=== PATIENT | female | born 1960 | race Caucasian/White ===

== ENCOUNTER → 2021-10-22 10:40 | Outpatient (CLI) | payer BC, SELFPAY ==
--- NOTE | ~2021-10-22 | MM_ITS ---
EXAMINATION: MM screening petrona BI w tavon HISTORY: Screening TECHNIQUE: Craniocaudal and mediolateral oblique 3-D tomosynthesis images were obtained and synthetic 2-D images were generated. CAD analysis was submitted and interpreted. COMPARISON: No prior mammogram is available for comparison at this institution. BREAST PARENCHYMAL COMPOSITION: There are scattered areas of fibroglandular density. FINDINGS: There is a focal asymmetry in the upper outer quadrant of the right breast anteriorly. The re is no mammographic evidence for malignancy in the left breast. IMPRESSION: 1. Focal right breast asymmetry with possible architectural distortion upper outer quadrant of the ri ght breast anteriorly. 2. Additional mammographic views and possible breast ultrasound are recommended. BI-RADS Category 0: Incomplete: Needs additional imaging evaluation. Reviewed, dictated and finalized at location A. NESS SERVICES VICE PRESIDENT IMPRESSION: 1. Focal right breast asymmetry with possible architectural distortion upper ou ter quadrant of the right breast anteriorly. 2. Additional mammographic views and possible breast ultrasound are recommended . BI-RADS Category 0: Incomplete: Needs additional imaging evaluation.
== END ==
PROVIDERS: Visit Provider Nurse Practitioner Family
DX: Z12.31 Encounter for screening mammogram for malignant neoplasm of breast (principal); R92.8 Other abnormal and inconclusive findings on diagnostic imaging of breast
CPT/HCPCS: 77063; 77067

== ENCOUNTER → 2021-11-04 07:44 | Outpatient (CLI) | payer BC, SELFPAY ==
--- NOTE | ~2021-11-04 | MMUS_ITS ---
EXAMINATION: MM diagnostic petrona RT w tavon, US breast RT limited HISTORY: Focal asymmetry reported in upper outer quadrant of right breast anteriorly on 10/22/2021 scr eening mammogram examinations TECHNIQUE: Additional 3-D tomosynthesis images of the right breast were performed and synthetic 2-D i mages were generated. CAD analysis was submitted and interpreted. High resolution upper outer and upp er inner quadrant right breast ultrasound was performed. COMPARISON: 10/31/2021 bilateral screening mammogram BREAST PARENCHYMAL COMPOSITION: There are scattered areas of fibroglandular density. FINDINGS: MAMMOGRAPHIC FINDINGS: No suspicious mass, architectural distortion, malignant calcification, skin thickening or retraction is detected. Benign-appearing punctate microcalcifications are noted. ULTRASOUND: No suspicious mass or shadowing, or cysts or other significant sonographic finding is detected in the upper inner upper outer quadrants of the right breast. IMPRESSION: 1. No mammographic evidence of malignancy 2. Routine annual mammographic screening is recommended BI-RADS Category 2: Benign finding(s). Reviewed, dictated and finalized at location A. IMPRESSION: 1. No mammographic evidence of malignancy 2. Routine annual mammographic screening is recommended BI-RADS Category 2: Benign finding(s).
== END ==
PROVIDERS: PCP Obstetrics & Gynecology; Visit Provider Nurse Practitioner Family
DX: R92.8 Other abnormal and inconclusive findings on diagnostic imaging of breast (principal)
CPT/HCPCS: 76642; 77061; 77065; G0279

== ENCOUNTER 2022-03-10 03:04 | Day surgery (SDC) | payer BC, SELFPAY ==
[2022-02-25 09:03] VITALS: BMI 31.4
--- NOTE | 2022-03-09 13:36 | SUR.PREOP ---
[id number] spoke with the patient regarding taking magnesium Citrate. Patient was able to purchase it. Confirmed with patient that she did not need to take it due to the recall of the medicine. Patient voiced understanding.
[2022-03-10 09:32] VITALS: BP 121/77; PULSE 92; RESP 20; TEMP 36.3; O2SAT 100
--- NOTE | 2022-03-10 09:39 | WPDANESEPPF ---
Anes - Initial Pre Proc Eval Procedure: Operation Date: 03/10/22 10:00 Proposed Procedures p Screening Colonoscopy - Mario Gil MD Date/Time: 03/10/22 09:39 Surgeon: Mario Gil MD Pre Op Diagnosis: neoplasm screening Patient Data Age: 61 Gender: F Height: 1.57 m Weight: 74.8 kg Last Vital Signs Temp 36.3 C L 03/10/22 09:32 Pulse 92 03/10/22 09:32 Resp 20 03/10/22 09:32 BP 121/77 03/10/22 09:32 Pulse Ox 100 03/10/22 09:32 O2 Del Method Room Air 03/10/22 09:32 Allergies Allergy/AdvReac Type Severity Reaction Status Date / Time No Known Allergies Allergy Verified 03/10/22 09:31 Home Medications Medication Instructions Recorded Confirmed Type Saccharomyces boulardii 250 mg 250 mg PO BID 06/15/21 03/10/22 History capsule (Daily Probiotic (S. boulardii)) ascorbate calcium (vitamin C) 500 500 mg PO DAILY 06/15/21 03/10/22 History mg tablet cholecalciferol (vitamin D3) 50 50 mcg PO DAILY 06/15/21 03/10/22 History mcg (2,000 unit) capsule hydrochlorothiazide 25 mg tablet 25 mg PO DAILY #90 tabs 06/15/21 03/10/22 Rx losartan 100 mg tablet 100 mg PO DAILY #90 tabs 06/15/21 03/10/22 Rx metformin 500 mg tablet 500 mg PO DAILY #90 tabs 06/15/21 03/10/22 Rx multivitamin (Daily Multi-Vitamin 1 tablet PO DAILY 06/15/21 03/10/22 History tablet) oxybutynin chloride 5 mg 5 mg PO DAILY #90 tabs 06/15/21 03/10/22 Rx tablet,extended release 24 hr simvastatin 10 mg tablet 10 mg PO DAILY #90 tabs 06/15/21 03/10/22 Rx zinc sulfate 25 mg zinc (110 mg) 25 mg PO DAILY 06/15/21 03/10/22 History tablet (Orazinc) estradiol 1 mg tablet 1 mg PO DAILY #90 tabs 07/12/21 03/10/22 Rx magnesium 250 mg tablet 250 mg PO DAILY 07/27/21 03/10/22 History metoprolol succinate 25 mg 25 mg PO DAILY #90 tabs 07/27/21 03/10/22 Rx tablet,extended release 24 hr bupropion HCl 150 mg tablet,12 hr 150 mg PO DAILY 10/20/21 03/10/22 History sustained-release (Wellbutrin SR) estradiol 2 mg tablet 2 mg PO DAILY #90 tabs 10/20/21 03/10/22 Rx testosterone 12.5 mg/1.25 gram per See Rx Instructions transdermal 02/03/22 03/10/22 Rx actuation (1%) transdermal gel pump DAILY #150 grams codeine 10 mg-guaifenesin 100 mg/5 5 ml PO TID PRN cough #120 mL 02/24/22 03/10/22 Rx mL oral liquid nirmatrelvir 300 mg (150 mg x See Rx Instructions PO .COMPLEX 02/24/22 03/10/22 Rx 2)-ritonavir 100 mg tablet (EUA) #30 tabs (Paxlovid 300 mg () peg 3350-electrolytes 236 240 ml PO Q10M #4,000 mL 02/24/22 03/10/22 Rx gram-22.74 gram-6.74 gram-5.86 gram solution (Golytely) azithromycin 250 mg tablet See Rx Instructions PO .COMPLEX #6 03/07/22 03/10/22 Rx (Zithromax Z-Prabhakar) tabs Patient hx anesthesia problems: none Family hx anesthesia problems: none Results Review: All pre-operative results and documents have been reviewed as part of the pre-operative evaluation. [facility] Past Medical History Medical History Anxiety Depression Essential hypertension HTN (hypertension) Hyperlipemia Migraine Missed x1 OAB (overactive bladder) Pre-diabetes Vaginal delivery x2 Surgical History Surgical History H/O: hysterectomy (~2006) 2009 History of back surgery (~2011) 2008 History of bilateral salpingo-oophorectomy 2009 History of bilateral tubal ligation History of cholecystectomy History of dilation and curettage History of endometrial ablation History of third molar tooth extraction History of tonsillectomy (~1970) Family History Family History Father Hypertension Heart disease Depression Anxiety Mother Cancer Stomach,Liver,Brain,Lungs Depression Anxiety Thyroid condition Sibling Anxiety Depression Grandparent Heart disease Grandparent Heart disease Social History Social History (Re
[2022-03-10 09:42] LABS: Glucose Point of Care 102 mg/dl (65-105)
[2022-03-10] MEDS: LACTATED RINGERS 1,000 ML 150 ML IV CONT (09:44)
--- NOTE | 2022-03-10 10:18 | WPDGICN ---
Assessment and Plan Assessment and plan (1) Encounter for screening colonoscopy: Code(s): Z12.11 - Encounter for screening for malignant neoplasm of colon Status: Acute Assessment and Plan: Patient presents for screening colonoscopy. Appears to be at average risk for colon polyp. Further recommendations will be given after endoscopy. GI Consult Note Consult date/time: 03/10/22 10:18 Reason for consult: Neoplasia screening. HPI: Ira Heredia is a 61 year old female Presents for screening colonoscopy. Patient's current weight appetite and bowel movements are normal. She denies abdominal pain. Patient has had no bleeding. Family history is noncontributory. Patient reports a colonoscopy 10 years ago that was unremarkable performed for unclear reasons. Review of Systems Review of Systems: Review of systems noncontributory. [facility] Past Medical History Medical History Anxiety Depression Essential hypertension HTN (hypertension) Hyperlipemia Migraine Missed x1 OAB (overactive bladder) Pre-diabetes Vaginal delivery x2 Surgical History Surgical History H/O: hysterectomy (~2006) 2009 History of back surgery (~2011) 2008 History of bilateral salpingo-oophorectomy 2009 History of bilateral tubal ligation History of cholecystectomy History of dilation and curettage History of endometrial ablation History of third molar tooth extraction History of tonsillectomy (~1970) Family History Family History Father Hypertension Heart disease Depression Anxiety Mother Cancer Stomach,Liver,Brain,Lungs Depression Anxiety Thyroid condition Sibling Anxiety Depression Grandparent Heart disease Grandparent Heart disease Social History Social History Smoking status: Never smoker Alcohol intake: current Drinks per week: 2 Alcohol use details: Daily Substance use: never Substance use type: does not use Living arrangements: with family Gender identity (if verbalized by the patient): Female Spiritual care concerns: No Agree to blood products: Yes Meds Home Medications and Allergies Home Medications Medication Instructions Recorded Confirmed Type Saccharomyces boulardii 250 mg 250 mg PO BID 06/15/21 03/10/22 History capsule (Daily Probiotic (S. boulardii)) ascorbate calcium (vitamin C) 500 500 mg PO DAILY 06/15/21 03/10/22 History mg tablet cholecalciferol (vitamin D3) 50 50 mcg PO DAILY 06/15/21 03/10/22 History mcg (2,000 unit) capsule hydrochlorothiazide 25 mg tablet 25 mg PO DAILY #90 tabs 06/15/21 03/10/22 Rx losartan 100 mg tablet 100 mg PO DAILY #90 tabs 06/15/21 03/10/22 Rx metformin 500 mg tablet 500 mg PO DAILY #90 tabs 06/15/21 03/10/22 Rx multivitamin (Daily Multi-Vitamin 1 tablet PO DAILY 06/15/21 03/10/22 History tablet) oxybutynin chloride 5 mg 5 mg PO DAILY #90 tabs 06/15/21 03/10/22 Rx tablet,extended release 24 hr simvastatin 10 mg tablet 10 mg PO DAILY #90 tabs 06/15/21 03/10/22 Rx zinc sulfate 25 mg zinc (110 mg) 25 mg PO DAILY 06/15/21 03/10/22 History tablet (Orazinc) estradiol 1 mg tablet 1 mg PO DAILY #90 tabs 07/12/21 03/10/22 Rx magnesium 250 mg tablet 250 mg PO DAILY 07/27/21 03/10/22 History metoprolol succinate 25 mg 25 mg PO DAILY #90 tabs 07/27/21 03/10/22 Rx tablet,extended release 24 hr bupropion HCl 150 mg tablet,12 hr 150 mg PO DAILY 10/20/21 03/10/22 History sustained-release (Wellbutrin SR) estradiol 2 mg tablet 2 mg PO DAILY #90 tabs 10/20/21 03/10/22 Rx testosterone 12.5 mg/1.25 gram per See Rx Instructions transdermal 02/03/22 03/10/22 Rx actuation (1%) transdermal gel pump DAILY #150 grams codeine 10 mg-guaifenesin 100 mg/5 5 ml PO TID PRN cou
[2022-03-10 10:58] VITALS: BP 131/77; PULSE 83; RESP 22; O2SAT 96
[2022-03-10 11:08] VITALS: BP 136/80; PULSE 77; RESP 18; O2SAT 98
== END 2022-03-10 11:24 | disposition home or self-care (01) ==
PROVIDERS: PCP Nurse Practitioner Family; Visit Provider Internal Medicine Gastroenterology
PROC: 0DJD8ZZ Inspection of Lower Intestinal Tract, Via Natural or Artificial Opening Endoscopic (ICD-10-PCS; CPT 45378; principal; 2022-03-10 10:00)
DX: Z12.11 Encounter for screening for malignant neoplasm of colon (principal); K57.30 Diverticulosis of large intestine without perforation or abscess without bleeding; I10 Essential (primary) hypertension; E78.5 Hyperlipidemia, unspecified; R73.03 Prediabetes; F41.9 Anxiety disorder, unspecified; F32.A Depression, unspecified; N32.81 Overactive bladder; Z79.84 Long term (current) use of oral hypoglycemic drugs; Z79.891 Long term (current) use of opiate analgesic; E66.9 Obesity, unspecified; Z68.30 Body mass index [BMI] 30.0-30.9, adult
CPT/HCPCS: 45378; 82948; J2704; J7120

== ENCOUNTER 2022-06-01 18:42 | Outpatient (NON) | payer BC, SELFPAY | END 2022-06-01 18:43 | disposition home or self-care (01) | PROVIDERS: PCP Nurse Practitioner Family; Visit Provider Nurse Practitioner | DX: J02.9 Acute pharyngitis, unspecified (principal) | CPT/HCPCS: 87070 ==

== ENCOUNTER 2023-03-27 13:15 | Outpatient (CLI) | payer BC, SELFPAY ==
--- NOTE | ~2023-03-27 | US_ITS ---
EXAMINATION: US soft tissue chest INDICATION: Localized swelling mass and lump of the left chest TECHNIQUE: Limited ultrasound is performed in the area of clinical concern. COMPARISON: None available FINDINGS: No sonographic correlate is identified for the reported painful palpable area of the left f lank. Normal subcutaneous tissues are seen. IMPRESSION: 1. No specific sonographic correlate is identified for the reported painful and palpable abnormality of the left flank. Further evaluation at this time should be based on clinical assessment. Reviewed, dictated and finalized at location B.
== END 2023-03-27 13:16 ==
PROVIDERS: PCP Nurse Practitioner Family; Referring Provider Family Medicine; Visit Provider Nurse Practitioner Family
DX: R22.2 Localized swelling, mass and lump, trunk (principal)
CPT/HCPCS: 76604

== ENCOUNTER → 2023-07-28 14:41 | Outpatient (CLI) | payer BC, SELFPAY ==
--- NOTE | ~2023-07-28 | MM_ITS ---
EXAMINATION: MM screening petrona BI w tavon HISTORY: Screening TECHNIQUE: Craniocaudal and mediolateral oblique 3-D tomosynthesis images were obtained and synthetic 2-D images were generated. CAD analysis was submitted and interpreted. COMPARISON: Comparison to multiple prior studies sequentially, with oldest reviewed study dated 04/05. BREAST PARENCHYMAL COMPOSITION: There are scattered areas of fibroglandular density. FINDINGS: The left breast is stable without evidence for malignancy. There is increasing architectura l distortion in the periareolar location of the right breast. IMPRESSION: 1. Increasing architectural distortion periareolar location of the right breast. 2. Additional mammographic views and possible breast ultrasound are recommended. BI-RADS Category 0: Incomplete: Needs additional imaging evaluation. Reviewed, dictated and finalized at location A. L DIE ENGRAVER IMPRESSION: 1. Increasing architectural distortion periareolar location of the right breast . 2. Additional mammographic views and possible breast ultrasound are recommended . BI-RADS Category 0: Incomplete: Needs additional imaging evaluation.
== END ==
PROVIDERS: PCP Nurse Practitioner Family; Visit Provider Nurse Practitioner Family
DX: Z12.31 Encounter for screening mammogram for malignant neoplasm of breast (principal); R92.8 Other abnormal and inconclusive findings on diagnostic imaging of breast
CPT/HCPCS: 77063; 77067

== ENCOUNTER 2023-08-24 08:32 | Outpatient (CLI) | payer BC, SELFPAY ==
--- NOTE | ~2023-08-24 | MM_ITS ---
EXAMINATION: MM diagnostic petrona RT w tavon HISTORY: Possible right breast architectural distortion on screening mammogram TECHNIQUE: Additional 3-D tomosynthesis images of the right breast were performed and synthetic 2-D i mages were generated. CAD analysis was submitted and interpreted. COMPARISON: 07/28/2023, 11/04/2021, 10/22/2021, 05/26/2017, 04/05/2011, 02/26/2010 FINDINGS: There is a return to baseline fibroglandular appearance with spot compression of the right breast in the area questioned on screening mammogram. No suspicious mass, calcification, or [employer] architect ural distortion are identified. IMPRESSION: 1. No mammographic evidence of malignancy. 2. Recommend routine screening mammography in one year. BI-RADS Category 1: Negative Reviewed, dictated and finalized at location A. ITY CONTROL INDUSTRIAL ENGINEER
== END 2023-08-24 08:33 ==
LOC: MICIMG 08:34
PROVIDERS: PCP Nurse Practitioner Family; Visit Provider Nurse Practitioner Family
DX: R92.8 Other abnormal and inconclusive findings on diagnostic imaging of breast (principal)
CPT/HCPCS: 77061; 77065; G0279

== ENCOUNTER 2024-01-09 15:55 | Outpatient (CLI) | payer BC, SELFPAY ==
--- NOTE | ~2024-01-09 | XR_ITS ---
EXAMINATION: XR lumbar spine 2-3V DATE: 01/09/2024 16:21 INDICATION: Chronic low back pain. TECHNIQUE: 3 views of lumbar spine were obtained. COMPARISON: None. FINDINGS: There is 4 degrees dextrocurvature lumbar spine. Vertebral body heights are normal. There i s mildly decreased disc height at L1-L2 and L2-L3 and severely decreased disc height at L5-S1. There is multilevel severe facet joint osteophytes. Surgical clips in the right upper quadrant are likely f rom cholecystectomy. There is a tubal ligation clip in the pelvis. IMPRESSION: 1. Severe lumbar spondylosis. Reviewed, dictated and finalized at location A.
== END 2024-01-09 15:56 ==
LOC: GOSHIMG 15:55
PROVIDERS: PCP Family Medicine; Visit Provider Student in an Organized Health Care Education/Training Program
DX: M43.06 Spondylolysis, lumbar region (principal); G89.29 Other chronic pain
CPT/HCPCS: 72100

== ENCOUNTER 2024-01-24 08:39 | Outpatient (CLI) | payer BC, SELFPAY ==
--- NOTE | ~2024-01-24 | MR_ITS ---
MRI of the lumbar spine Clinical History: Back pain Technique: Axial T2-weighted images, and sagittal T1-weighted, T2-weighted, and and T2 fat-sat images were acquired. Findings: No fracture seen. There is minimal grade I retrolisthesis of L2 over L3, with type I Modic changes about this disc space. No other bone marrow signal abnormality seen. At L1-L2, there is minimal disc bulge with mild to moderate facet arthropathy. No central canal steno sis or neural foraminal narrowing. At L2-L3, the disc bulge and moderate to advanced facet arthropathy, with moderate to advanced spinal canal stenosis/thecal sac compression. There is mild bilateral neural foraminal narrowing. At L3-L4, there is minimal disc bulge with severe facet arthropathy. No mateus central canal stenosis despite mild posterior prominent epidural fat. Neural foramina are minimally narrowed. At L4-L5, there is minimal disc bulge and severe facet arthropathy. No central canal stenosis. There is moderate to advanced right neural foraminal narrowing. At L5-S1, there is severe degenerative disc narrowing. There is mild disc osteophyte complex at the l eft paracentral to left foraminal region. There is severe facet arthropathy. There is moderate to adv anced left neural foraminal narrowing. Right neural foramen preserved. Paravertebral soft tissues are unremarkable. Impression: Moderate to advanced degenerative spondylosis, as above. Reviewed, dictated and finalized at [facility]. Impression: Moderate to advanced degenerative spondylosis, as above.
== END 2024-01-24 08:40 ==
LOC: GOSHIMG 08:40
PROVIDERS: PCP Family Medicine; Visit Provider Student in an Organized Health Care Education/Training Program
DX: M47.896 Other spondylosis, lumbar region (principal)
CPT/HCPCS: 72148

== ENCOUNTER 2024-08-26 11:02 | Outpatient (CLI) | payer BC, SELFPAY ==
--- NOTE | ~2024-08-26 | MM_ITS ---
EXAMINATION: MM screening petrona BI w tavon HISTORY: Screening mammogram TECHNIQUE: Craniocaudal and mediolateral oblique 3-D tomosynthesis images were obtained and synthetic 2-D images were generated. CAD analysis was submitted and interpreted. COMPARISON: 08/24/2023, 07/28/2023 BREAST PARENCHYMAL COMPOSITION:Not Dense. There are scattered areas of fibroglandular density. FINDINGS: No suspicious mass, calcification, or architectural distortion are identified in either michelle ast to suggest malignancy. There has been no suspicious interval change. IMPRESSION: No mammographic evidence of malignancy. Recommend routine screening mammography in one year. BI-RADS Category 1: Negative Reviewed, dictated and finalized at location . PING MACHINE OPERATOR
== END 2024-08-26 11:03 | disposition home or self-care (01) ==
LOC: MICIMG 11:03
PROVIDERS: PCP Family Medicine; Visit Provider Family Medicine
DX: Z12.31 Encounter for screening mammogram for malignant neoplasm of breast (principal)
CPT/HCPCS: 77063; 77067

== ENCOUNTER 2025-03-17 10:05 | Outpatient (CLI) | payer BC, SELFPAY ==
--- NOTE | ~2025-03-17 | DEXA_ITS ---
Bone Density Report Name: MELANIA VILLEDA Age: 64 Sex: Female Ethnicity: White Date of : 1960 Indication: postmenopausal; screening for osteoporosis; hysterectomy; Referring Provider: CADEN WHITTEN Study: Bone densitometry was performed. Exam Date: March 17, 2025 Accession number: [id number] Bone Density: Region BMD T-score Z-score Classification AP Spine(L1-L4) 1.086 0.4 1.9 Normal Femoral Neck (Left) 0.706 -1.3 0.1 Osteopenia Total Hip (Left) 0.905 -0.3 0.8 Normal Femoral Neck (Right) 0.705 -1.3 0.1 Osteopenia Total Hip (Right) 0.871 -0.6 0.5 Normal Total Hip Mean 0.888 -0.5 0.7 Normal World Health Organization criteria for BMD impression classify patients as: Normal (T-score at or above -1.0), Osteopenia (T-score between -1.0 and -2.5), or Osteoporosis (T-score at or below -2.5). 10-year Fracture Risk(1): Major Osteoporotic Fracture 7.7% Hip Fracture 0.6% Reported Risk Factors: [place] (), Neck BMD=0.706, BMI=31.2 (1) FRAX(R) Version 3.08. Fracture probability calculated for an untreated patient. Fracture probability may be lower if the patient has received treatment. Clinical Information Provided by Patient: Has used the following medications: Vitamin D, Calcium Has the following medical conditions: Hysterectomy Patient maximum height was 63 Menopause Age: 52 No regular weight bearing exercise Drinks caffeinated beverages Onset of menses at age 13 Number of children 2 Impression: The patient has low bone mass, based on the Left Femoral Neck T-score. The patient has an estimated ten-year risk of hip fracture of 0.6% and an estimated ten-year risk of major fracture of 7.7%, based on the WHO FRAX algorithm. Discussion: BONE DENSITY IS LOW AT ONE OR MORE SKELETAL SITES. This patient's lowest T-score is low at one or more skeletal sites. It meets the World Health Organization's (WHO) criteria for ?low bone mass? (T-score between -1.0 and -2.5). The patient's 10-year risk of fracture as calculated by FRAX is less than the threshold where pharmacological therapy is recommended by the National Osteoporosis Foundation (NOF). However, all treatment decisions require clinical judgment and consideration of individual patient factors, including patient preferences, comorbidities, previous drug use, risk factors not captured in the FRAX model (e.g., frailty, falls, vitamin D deficiency, increased bone turnover, interval significant decline in bone density) and possible under or overestimation of fracture risk by FRAX. The patient should follow a healthful lifestyle (good nutrition with adequate calcium and vitamin D, and appropriate weight-bearing exercise). Follow-Up: Consider repeating this study in 2 to 3 years to reassess this patient's status, or sooner if there is some new clinical indication. Reported by: FRANCISCA on 03/17/2025 11:19:00 AM. Reviewed, dictated and finalized at location A.
== END 2025-03-17 10:06 | disposition home or self-care (01) ==
LOC: MICIMG 10:07
PROVIDERS: PCP Obstetrics & Gynecology; Visit Provider Obstetrics & Gynecology
DX: M85.89 Other specified disorders of bone density and structure, multiple sites (principal); Z91.89 Other specified personal risk factors, not elsewhere classified; Z13.820 Encounter for screening for osteoporosis
CPT/HCPCS: 77080

== ENCOUNTER 2025-05-05 08:24 | Outpatient (CLI) | payer BC, SELFPAY ==
--- OUTSIDE RECORDS SUMMARY | 2015-12-25 05:20 | XMS_ITS | Continuity of Care Document ---
Author Organization [facility] Address [address] [place] [address] Phone Care Team Providers Care Mail Distribution Clerk Name Role Phone Solo Shah MD, Humberto Hallman Unavai lable Allergies, Adverse Reactions, Alerts Substance Reaction Status Criticality No Known Allergies Active No Inform ation Medications Medication Instructions Dosage Effective Dates (start - stop) Status Comments No Drug Therapy Prescribed Procedures Procedure Date OFFICE/OUTPATIENT VISIT NEW Advance Directives Directive Yes / No Effective Date File Name No Information Encounters Encounter Description Practice Location Reason(s) For Visit Diagnoses Date Provider Providers Copied on Encounter OFFICE/OUTPAT IENT VISIT NEW [facility] , [address], [place], [address], tel:[phone] [facility] Neck pain Solo rogers [address], [place], [place], [id number]. tel:[phone] Family History Family Member Type Diagnosis Age At Onset Brother Problem (finding) hypertension Father Problem (finding) Cardiovascular disease Brother Problem (finding) Maternal history of gabrielle betes mellitus Mother Problem (finding) Father Problem (finding) Maternal history of gabrielle betes mellitus Mother Problem (finding) Cancer, unknown (Cause Of ) Mother Problem (finding) hypertension Payers Payer name Insurance type Covered green party ID Authoriza titim(s) [facility] Choice/Choice Plus E2 [id number] Social History Type Description Quantity Date Captured Comments Alcohol Use Details Caffeine Use Details Unknown Tobacco Use Status Never smoked tobacco 2015 Smoking Status Never smoker Non-Smoking Tobacco Use Details : No Details Available : No Details Available Sex Female Vital Signs Date / Time: Height Weight BMI Pulse Rate Blood Pressure Temperature Respiratory Rate Body Surface Area Head Circumference Head Circ. Percentile Wt./Juan Carlos. Percentile BMI percentile Pulse Ox Inhaled Ox 10:47 AM 63.00 in 74.843 kg (165.00 lbs) 29.2 3 kg/m eter (2) Chief Complaint And Reason For Visit No Information Reason For Referral Reason For Referral No Information History Of Present Illness Encounter Date Complaint History Of Prese nt Illness No Information Functional Status Date Functional Assessmen t No Information Medications Administered Medication Instructions Dosage Effective Dates (start - stop) Status Comments No Drug Therapy Prescribed Instructions Date Instruction Additional Infor mation No Information Assessments Type Assessment Date assessment Neck pain Patient Care Teams Name Effective Dates (start - stop) Status Members No Information
--- OUTSIDE RECORDS SUMMARY | 2025-05-05 08:59 | XMS_ITS | Encounter Summary ---
Author Organization [facility] Address 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 Gender Identity Not on file Sexual Orientation Not on file documented as of this encounter Plan of Treatment Not on file documented as of this encounter Procedures Procedure Name Priority Date/Time Associated Diagnosis Comments POC , URINE Routine 11/20/2006 8:00 AM CDT HEMOGLOBIN AND HEMATOCRIT Routine 11/16/2006 9:12 AM CDT documented in this encounter Results * POC , URINE (11/20/2006 8:00 AM CDT) , URINE POC Negative Negative INTERFACE SYSTEM 11/20/2006 8:00 AM CDT us José Lester MD POINT OF CARE TESTING Edited INTERFACE SYSTEM Refer to clinic/hospital department * HEMOGLOBIN AND HEMATOCRIT (11/16/2006 9:12 AM CDT) HEMOGLOBIN 13.9 11.8 - 14.8 g/dL INTERFACE SYSTEM HEMATOCRIT 41.9 35.5 - 44.0 % INTERFACE SYSTEM 11/16/2006 9:12 AM CDT us José Lester MD HEMATOLOGY ORDERABLES Edited INTERFACE SYSTEM Refer to clinic/hospital department documented in this encounter Visit Diagnoses Diagnosis Displacement of lumbar intervertebral disc without myelopathy- Primary documented in this encounter Care Teams Boiler Maker Relationship Specialty Start Date End Date Chinmay Hilton MD [address] [place] [address] PCP - General 11/10/06 documented as of this encounter
--- OUTSIDE RECORDS SUMMARY | 2025-05-05 08:59 | XMS_ITS | Encounter Summary ---
Author Organization [facility] Address 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 Gender Identity Not on file Sexual Orientation Not on file documented as of this encounter Plan of Treatment Not on file documented as of this encounter Procedures Procedure Name Priority Date/Time Associated Diagnosis Comments MAMMO SCREEN BILAT W OR WO CAD Routine 12/02/2008 10:40 AM CDT documented in this encounter Results * MAMMO DIGITAL SCREEN BILAT (12/02/2008 10:40 AM CDT) Anatomical Region Laterality Modality Breast Bilateral Other 12/02/2008 10:4 0 AM CDT Narrative 12/03/2008 8:51 AM CDT [address] [address] Admit Date: 12/02/2008 KRACLAUDIA MCELROYChris Vance Sex: F Admit Prov: HETAL FLANAGAN Date: 1960 Primary Care Prov: CHINMAY HILTON CMRN: [id number] Room: LUIS MIGUEL SSN: [id number] IMAGING SERVICES Ordering Prov: HETAL FLANAGAN Accession Number: [id number] Interpretation BILATERAL SCREENING DIGITAL MAMMOGRAMS WITH COMPUTER ASSISTED DIAGNOSIS, 12/02/2008 REASON FOR EXAMINATION: Routine screening study. FINDINGS: The parenchyma is moderately dense bilaterally. There is no mass, malignant calcification, lymphadenopathy or other sign of malignancy. The images were reviewed using the CAD system. IMPRESSION: No mammographic evidence of malignancy. BI-RADS Category: 1, negative. Assessment BIRADS: 1-Negative Recommendation: Normal interval follow-up Dictated by: JHON PERERA Electronically signed by: JHON PERERA 12/03/2008 08:50 Transcribed: 12/03/2008 07:41 DKT Procedure Note Jhon Perera MD - 12/03/[id number] [place], [place] [address] Admit Date: 12/02/2008 DILLONIRA MCELROY Sex: F Admit Prov: HETAL FLANAGAN Date: 1960 Primary Care Prov: CHINMAY HILTON CMRN: [id number] Room: LUIS MIGUEL N: [id number] IMAGING SERVICES Ordering Prov: HETAL FLANAGAN Interpretation BILATERAL SCREENING DIGITAL MAMMOGRAMS WITH COMPUTER ASSISTEDDIAGNOSIS, 12/02/2008 REASON FOR EXAMINATION: Routine screening study. FINDINGS: The parenchyma is moderately dense bilaterally. There is no mass,malignant calcification, lymphadenopathy or other sign of malignancy. Theimages were reviewed using the CAD system. IMPRESSION: No mammographic evidence of malignancy. BI-RADS Category: 1, negative. Assessment BIRADS: 1-Negative Recommendation: Normal interval follow-up Dictated by: JHON PERERA Electronically signed by: JHON PERERA 12/03/2008 08:50 Transcribed: 12/03/2008 07:41 DKT us Hetal Flanagan MD MAMMO ORDERABLES Final Resul t documented in this encounter Visit Diagnoses Diagnosis Other screening mammogram documented in this encounter Care Teams Position Description Manager Relationship Specialty Start Date End Date Chinmay Hilton MD [address] [place] [address] PCP - General 11/10/06 documented as of this encounter
--- OUTSIDE RECORDS SUMMARY | 2025-05-05 08:59 | XMS_ITS | Encounter Summary ---
Author Organization [facility] Address 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, [place] [address] Patient: IRA VILLEDA : 1960 Procedure Date: 02/06/2009 Accession Date: 02/06/2009 Case No: [id number] Ordering Dr: Violeta GLASER Case types AW, BW, FW, NW and SH are performed by [facility] [place], [place], [place] SURGICAL PATHOLOGY & NON-GYNECOLOGIC CYTOPATHOLOGY REPORT DIAGNOSIS UTERUS, CERVIX, VAGINAL HYSTERECTOMY: - NO SIGNIFICANT HISTOPATHOLOGIC ABNORMALITIES. UTERUS, ENDOMETRIUM, VAGINAL HYSTERECTOMY: - EARLY SECRETORY PATTERN WITH NO SIGNIFICANT HISTOPATHOLOGIC ABNORMALITIES. UTERUS, MYOMETRIUM, VAGINAL HYSTERECTOMY: - LEIOMYOMA. - ADENOMYOSIS. OVARIES AND FALLOPIAN TUBES, RIGHT AND LEFT, EXCISION: - NO SIGNIFICANT HISTOPATHOLOGIC ABNORMALITIES. Specimen Description: Uterus, cervix, bilateral tubes and ovaries. Operative Procedure: Laparoscopic assisted vaginal hysterectomy, bilateral salpingo- oophorectomy. Patient Information/Histor y/Diagnosis: Menorrhagia and dysmenorrhea. Gross: Received in one container labeled Ira Villeda., uterus, cervix, bilateral tubes and ovaries is a 127-g, 8.7 x 5.5 x 4.7-cm uterus. The bilateral adnexa are attached. The serosa is pink-greenfield and glistening. The 3.3 x 2.7-cm ectocervix is pink-greenfield, glistening, and focally disrupted. The 0.6-cm slit os leads into a 2.5-cm trabeculated endocervical canal. The transformation zone is distinct. The 3.3 x 0.7-cm endometrial cavity is stenotic. The cavity is lined by 0.1-cm thick, diffusely hemorrhagic endometrium. The 2.3-cm thick myometrium is remarkable for two firm, well- circumscribed nodules, 0.4 cm and 1.5 cm. The nodules have a white, whorled cut surface with no areas of hemorrhage or necrosis. The 1.5 x 1.0 x 1.0-cm right ovary has an attached 5.5-cm long x 0.5-cm in diameter fimbriated fallopian tube. The surface of the ovary is pink-greenfield, smooth and intact. Sectioning demonstrates a 0.4-cm cyst filled with clear thin fluid. The inner lining of the cyst is smooth and uniform. The fallopian tube is discontinuous. The surface is purple-greenfield and glistening. The lumen of the proximal end of the tube is dilated to 0.2 cm in diameter. The left ovary measures 2.7 x 1.8 x 0.9 cm and has an attached 4.5-cm long x 0.5-cm in diameter discontinuous fimbriated fallopian tube. The surface of the fallopian tube is pink-greenfield, wrinkled, and focally disrupted. Sectioning demonstrates a 0.5-cm cyst filled with clear thin fluid. There are also multiple hemorrhagic corpora lutea. The surface of the fallopian tube is purple-greenfield and glistening. The lumen of the proximal end of the tube is dilated to 1.0 cm in diameter. The remainder of the tube has a pinpoint lumen. Car Starter sections are submitted as follows: A1-anterior cervix; A2-posterior cervix; A3-anterior endomyometrium; A4-posterior endomyometrium; A5-larger intramural nodule; A6-first tube and ovary; A7- second tube and ovary. [facility] 02.06.2009 02:21 pm Microscopic: The slides are labeled [id number] and Ira Villeda. Sections of the cervix show Nabothian cysts. The endometrium demonstrates an early secretory pattern with no significant histopathologic abnormalities. A leiomyoma and foci of adenomyosis are present in the myometrium. There are no significant histopathologic abnormalities in the ovaries or fallopian tubes. A corpus luteum is present in the left ovary. [facility] 02.09.2009 01:45 pm Staging Form: No. ELECTRONIC SIGNATURE FOR HARRY RIGGS M.D.- 02/09/09 03:22 pm INTERFACE SYSTEM 02/06/2009 11:2 9 AM CDT us José Glaser MD PATHOLOGY/CYTOLOGY ORDERAB LES Final Result INTERFACE SYSTEM Refer to clinic/hospital department * POC , URINE (02/06/2009 6:05 AM CDT) , URINE POC Negative Negative [facility] 02/06/2009 6:05 AM CDT 02/06/2009 6:05 AM CDT José Glaser MD POINT OF CARE TESTING Puja l Result Performing Organization Address [facility] Phone Number INTERFACE SYSTEM Refer to clinic/hospital department [facility] CLIA# [id number] [address] [place] [address] * TYPE AND SCREEN (02/02/2009 4:38 PM CDT) SPECIMEN LIFE 3 days from OR date [facility] HISTORY CHECK History Checked [facility] ANTIBODY SCREEN Negative [facility] ABO/RH TYPE A Positive [facility] 02/02/2009 4:38 PM CDT José Glaser MD BLOOD BANK ORDERABLES Edit ed Performing Organization Address [facility] Phone Number INTERFACE SYSTEM Refer to clinic/hospital department [facility] CLIA# [id number] [address] [place] [address] * HEMOGLOBIN AND HEMATOCRIT (02/02/2009 4:15 PM CDT) HEMOGLOBIN 13.3 11.8 - 14.8 g/dL [facility] HEMATOCRIT 39.7 35.5 - 44.0 % [facility] 02/02/2009 4:15 PM CDT 02/02/2009 4:58 PM CDT José Glaser MD HEMATOLOGY ORDERABLES Puja l Result Performing Organization Address [facility] Phone Number INTERFACE SYSTEM Refer to clinic/hospital department [facility] CLIA# [id number] [address] [place] [address] documented in this encounter Visit Diagnoses Diagnosis Unspecified symptom associated with female genital organs documented in this encounter Care Teams Assistive Technology Trainer Relationship Specialty Start Date End Date Chinmay Hilton MD [address] [place] [id number] PCP - General 11/10/06 documented as of this encounter
--- OUTSIDE RECORDS SUMMARY | 2025-05-05 08:59 | XMS_ITS | Clinical Summary ---
Author Organization [facility] Address [address] [place] [address] Care Team Providers Care Turf Farmer Name Role Phone Guanako Sanchez MD Primary Care Provider Allergies No known active allergies Medications traMADoL (ULTRAM) 25 mg tablet Take by mouth every 6 (six) hours as needed 01/31/2024 Active simvastatin (ZOCOR) 10 mg tablet Take 1 tablet (10 mg total) by mouth daily Active oxyBUTYnin XL (DITROPAN-XL) 5 mg 24 hr tablet Take 1 tablet (5 mg total) by mouth daily 03/02/2024 Active metoprolol XL (TOPROL-XL) 50 mg extended release tablet Take 2 tablets (100 mg total) by mouth daily 12/27/2023 Active losartan (COZAAR) 100 mg tablet Take 1 tablet (100 mg total) by mouth daily Active levothyroxine (SYNTHROID) 75 mcg tablet Take 1 tablet (75 mcg total) by mouth daily Active ibuprofen 200 mg tab/cap Take by mouth every 4 (four) hours as needed 10/10/2016 Active hydroCHLOROthia zide (HYDRODIURIL) 25 mg tablet Take 1 tablet (25 mg total) by mouth daily Active fluticasone propionate (FLONASE) 50 mcg/actuation nasal spray 1 SPRAY IN EACH NOSTRIL NASALLY EVERY 12 HRS 7 DAY(S) 02/28/2024 Active doxycycline hyclate 100 mg capsule TAKE 1 CAPSULE BY MOUTH EVERY 12 HOURS FOR 10 DAYS 02/28/2024 Active cyclobenzaprine (FLEXERIL) 5 mg tablet TAKE 1 TABLET BY MOUTH THREE TIMES DAILY NEEDED FOR BACK SPASMS 01/09/2024 Active citalopram (CeleXA) 10 mg tablet Take 1 tablet (10 mg total) by mouth daily 12/27/2023 Active buPROPion SR (ZYBAN) 150 mg 12 hr tablet Take 1 tablet (150 mg total) by mouth 2 (two) times a day Active estradioL (ESTRACE) 2 mg tablet Take 1 tablet (2 mg total) by mouth daily Active diazePAM (VALIUM) 5 mg tabletIndicatio ns:anxiety Take 1 tablet (5 mg total) by mouth once for 1 dose 1 tablet 07/29/2024 Active busPIRone (BUSPAR) 5 mg tablet Take by mouth 3 (three) times a day as needed 07/10/2024 Active Active Problems Problem Noted Date Diagnosed Date Hypertension 06/25/2018 Immunizations Immunization Administration Dates Next Due Influenza, Quadrivalent, Spl it, Preservative Free, Intramuscular 04/16/2021,05/23/2019 Influenza, Unspecified 06/23/2017 Tdap 05/23/2019,01/23/2017 Surgical History Surgery Date Site/Laterality Comments BACK SURGERY L5-S1-over 10 yrs ago Medical History Medical History Date Comments Hypercholesteremia Hypertension Anxiety Social History Tobacco Use Types Packs/Day Years Used Date Smoking Tobacco: Never Smokeless Tobacco: Never Tobacco Cessation:Counseling Given: Not Answered Personal Safety Answer Date Recorded Have you ever been in or are you currently in a harmful physical or emotional relationship or is someone making you feel afraid or unsafe? 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 Gender Identity Not on file Sexual Orientation Not on file Occupation Industry Job Start Date Job End Date DISABLED Not on file Not on file Not on file Obstetrics History Last Filed Vital Signs Vital Sign Reading Time Taken Comments Blood Pressure 144/89 07/29/2024 3:43 PM MANAGEMENT ARCHITECT Pulse 81 07/29/2024 3:43 PM MANAGEMENT ARCHITECT Temperature - - Respiratory Rate 18 07/29/2024 3:43 PM MANAGEMENT ARCHITECT Oxygen Saturation 97% 07/29/2024 3:43 PM MANAGEMENT ARCHITECT Inhaled Oxygen Concentration - - Weight 79.8 kg (176 lb) 03/15/2024 9:49 AM CDT Height 158.8 cm (5' 2.5) 03/15/2024 9:49 AM CDT Body Mass Index 31.68 03/15/2024 9:49 AM CDT Plan of Treatment Health Maintenance Due Date Last Done Comments Breast Cancer Screening-Mammogram 1960 Cervical Cancer Screening 1960 Colon Cancer Screening-Colonoscopy 1962 Depression Screening 1962 Hepatitis C Screening 1962 Hepatitis B Screening 1980 Regular Well Visit/Exam 18-64 1980 Zoster Vaccine (1 of 2) 2012 Covid-19 Vaccine (3 - 2024-2 6 season) 2025 07/01/2021, 11/09/2020 Influenza Vaccine (#1) 2025 , 05/23/2019, 06/23/2017 DTaP/Tdap/Td Vaccine (3 - Td or Tdap) 05/23/2029 05/23/2019, 01/23/2017 Pneumococcal vaccine <65 Aged Out No longer eligible based on patient's age to complete this topic Insurance [facility] Care Teams Turf Farmer Relationship Specialty Start Date End Date Guanako Sanchez MD [address] [place] [address] PCP - General Family Practice 01/30/24
--- OUTSIDE RECORDS SUMMARY | 2025-05-05 08:59 | XMS_ITS | Encounter Summary ---
Author Organization [facility] Address [address] [place] [address] Care Team Providers Care Sound Recording Technician Name Role Phone Chinmay Hilton MD Primary Care Provider [phone] Encounter Details Date Type Department Care Team (Latest Contact Info) Description 10/26/2006 Outpatient Historical [facility] Chinmay Hilton MD [address] [place] [id number] Displacement of Lumbar Intervertebral Disc without Myelopathy (Primary Dx) Social History Tobacco Use Types Packs/Day Years Used Date Smoking Tobacco: Never Assessed Comments Unknown Sex and Gender Information Value Date Recorded Sex Assigned at Not on file 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
--- OUTSIDE RECORDS SUMMARY | 2025-05-05 08:59 | XMS_ITS | Clinical Summary ---
Author Organization [facility] Address [address] [place] [address] Care Team Providers Care Goods Layer Name Role Phone Wild Bhakta MD Primary Care Provider [phone] Allergies No known active allergies Medications losartan 100 MG tablet Take 1 tablet by mouth daily. 1 04/06/2018 Active Lactobacillus (ACIDOPHILUS PROBIOTIC) 10 MG Tab Take 0.5 mg by mouth daily. 05/22/2017 Active hydrochlorothia zide 25 MG tablet Take 1 tablet by mouth daily. 1 03/26/2018 Active ibuprofen 200 MG tablet Take by mouth every 4 (four) hours as needed. 10/10/2016 Active levothyroxine 50 MCG tablet Take 1 tablet by mouth daily. 1 03/26/2018 Active metFORMIN 500 MG tablet Take 1 tablet by mouth nightly at bedtime. 1 03/26/2018 Active simvastatin 10 MG tablet Take 1 tablet by mouth daily. 1 03/26/2018 Active sertraline 50 MG tablet Take 1 tablet by mouth daily. 0 03/26/2018 Active mirtazapine 30 MG tablet Take 1 tablet by mouth nightly at bedtime. 1 10/10/2017 Active Multiple Vitamins-Minera ls (CENTRUM SILVER 50+WOMEN) Tab Take 1 tablet by mouth daily. 05/22/2017 Active Multiple Vitamins-Minera ls (HAIR SKIN AND NAILS FORMULA) Tab Take 2 tablets by mouth daily. 05/22/2017 Active triamcinolone acetonide 55 MCG/ACT nasal inhaler 2 sprays by Nasal route daily. 10/24/2016 Active hydrocortisone 0.5 % ointment 05/22/2017 Acti ve albuterol sulfate HFA 108 (90 Base) MCG/ACT inhaler Inhale 1-2 puffs into the lungs 4 (four) times daily as needed. 11/14/2016 Active budesonide-form oterol 160-4.5 MCG/ACT inhaler Inhale 1 puff into the lungs 2 (two) times daily. 10/10/2016 Active Active Problems Problem Noted Date Diagnosed Date Hypertension 06/25/2018 Immunizations Immunization Administration Dates Next Due Influenza Adult (Generic) 06/23/2017 Tdap (Generic) 01/23/2017 Social History Tobacco Use Types Packs/Day Years Used Date Smoking Tobacco: Never Smokeless Tobacco: Never Alcohol Use Standard Drinks/Week Comments Yes 0 (1 standard drink = 0.6 oz pur e alcohol) AUDIT-C Answer Date Recorded Frequency of Alcohol Consumption 4 or more times a week 06/25/2018 Average Number of Drinks Not on file 018 Frequency of Binge Drinking Not on file 06/14 Comments Unknown Sex and Gender Information Value Date Recorded Sex Assigned at Not on file Legal Sex Female 7:06 PM CDT Gender Identity Not on file Sexual Orientation Not on file Last Filed Vital Signs Vital Sign Reading Time Taken Comments Blood Pressure 150/88 06/25/2018 10:56 AM QUALITY LEAD Pulse 113 06/25/2018 10:56 AM QUALITY LEAD Temperature 36.9 C (98.4 F) 06/25/2018 10:56 AM QUALITY LEAD Respiratory Rate 20 06/25/2018 10:5 6 AM QUALITY LEAD Oxygen Saturation 98% 06/25/2018 10: 56 AM QUALITY LEAD Inhaled Oxygen Concentration - - Weight 84.3 kg (185 lb 12.8 oz) 018 10:56 AM QUALITY LEAD Height 160 cm (5' 3) 03/26/2018 11:27 AM CDT Body Mass Index 32.91 03/26/2018 11:27 AM CDT Plan of Treatment Health Maintenance Due Date Last Done Comments Cervical Cancer Screening Pa p Smear (Age 30 to 64) Every 3 Years 1962 Colorectal Cancer Screening Colonoscopy (10 Years) 1962 Annual Physical 1965 Hepatitis C 1980 Cervical Cancer Screening Pa p with HPV Testing (Age 30 to 64) Every 5 Years 1992 Cervical Cancer Screening with HPV 1992 Mammogram Screening 2002 Pneumococcal Vaccine: 50+ Ye ars (1 of 1 - PCV) 2012 Zoster Vaccines (1 of 2) 2012 COVID-19 Vaccine (1 - 2023-2 5 season) 2025 DTaP, Tdap and Td Vaccines ( 2 - Td or Tdap) 01/23/2027 01/23/2017 RSV Immunization or 60+ Years (1 - 1-dose 75+ series) 2037 Meningococcal B Vaccine Aged Out No l onger eligible based on patient's age to complete this topic Meningococcal Vaccine Aged Out No jules jaime eligible based on patient's age to complete this topic RSV Immunizations Under 20 Months Aged Out No longer eligible based on patient's age to complete this topic Insurance [employer] Care Teams Goods Layer Relationship Specialty Start Date End Date Wild Bhakta MD PCP - General INTERNAL MEDICINE 06/22/18
--- OUTSIDE RECORDS SUMMARY | 2025-05-05 08:59 | XMS_ITS | Clinical Summary ---
Author Organization [facility] Address [address] [place] [address] Care Team Providers Care Flat Bed Knitter Name Role Phone Unavailable Primary Care Provider Unavailabl e Source Comments [facility] [place],non-owned Affiliates and Associated Physician Practices is amultiple site organization consisting of ambulatory clinics and hospital sitesin [place], [place], [place] and [place]. This disclosure is being madepursuant to the Care Everywhere program and may not contain all information available regarding this patient. Last updated 18.[facility] [place] Allergies No known active allergies Immunizations Immunization Administration Dates Next Due INFLUENZA VACCINE, QUADR. (F LUZONE; FLULAVAL; FLUARIX; AFLURIA QUADRIVALENT; 6MO+), 0.5 ML (IIV4) 05/23/2019 TDAP (7yrs+) 05/23/2019 Social History Tobacco Use Types Packs/Day Years Used Date Smoking Tobacco: Never Assessed Comments Unknown Sex and Gender Information Value Date Recorded Sex Assigned at Not on file Legal Sex Female 4:32 PM CDT Gender Identity Not on file Sexual Orientation Not on file Plan of Treatment Health Maintenance Due Date Last Done Comments COLOGUARD (AGES 45-75) - COL ON CA SCREENING 1962 COLON MONITORING 1962 COLONOSCOPY - COLON CA SCREENING 1962 CT COLONOGRAPHY - COLON CA SCREENING 1962 Colorectal Cancer Screening 1962 FIT - COLON CA SCREENING 1962 FLEX SIG - COLON CA SCREENING 1962 MAMMOGRAM 1962 HIV SCREENING 1977 HEPATITIS C SCREENING 08/19/1980 PNEUMOCOCCAL VACCINE 50+ (1 of 1 - PCV) 2012 ZOSTER VACCINE (1 of 2) 2012 LIPID TESTING 05/19/2022 05/19/2017 DEPRESSION SCREENING 08/14/2024 COVID-19 VACCINE (1 - 2023-2 5 season) 2025 INFLUENZA VACCINE (#1) 2025 , 06/23/2017 DTAP/TDAP/TD VACCINES (2 - T d or Tdap) 05/23/2029 05/23/2019 Respiratory Syncytial Virus (RSV) Vaccine Pt: or over 60 yrs (1 - 1-dose 75+ series) 2037 HEPATITIS B VACCINE Aged Out No longe r eligible based on patient's age to complete this topic HIB VACCINE Aged Out No longer eligi ble based on patient's age to complete this topic HPV VACCINE Aged Out No longer eligi ble based on patient's age to complete this topic MENINGOCOCCAL (Group B) VACCINE SHARED DECISION-MAKING Aged Out No longer eligible based on patient's age to complete this topic MENINGOCOCCAL GROUPS A/C/Y/W VACCINE Aged Out No longer eligible b ased on patient's age to complete this topic Insurance
--- OUTSIDE RECORDS SUMMARY | 2025-05-05 08:59 | XMS_ITS | Encounter Summary ---
Author Organization [facility] Address [facility] [place] [address] Care Team Providers Care Order Clerk Name Role Phone Wild Bhakta MD Primary Care Provider [phone] Encounter Details Date Type Department Care Team (Late st Contact Info) Description 01/21/2021 [facility] Patient Accounts [address] [place] [address] [place] Provider Financial Assistance application Social History Tobacco Use Types Packs/Day Years [...] documented as of this encounter Visit Diagnoses Not on filedocumented in this encounter Care Teams Order Clerk Relationship Specialty Start Date End Date Wild Bhakta MD PCP - General INTERNAL MEDICINE 06/22/18 documented as of this encounter
--- OUTSIDE RECORDS SUMMARY | 2025-05-05 08:59 | XMS_ITS | Encounter Summary ---
Author Organization [facility] Address [address] [place] [address] Care Team Providers Care Resin Remover Name Role Phone Wild Bhakta MD Primary Care Provider [phone] Encounter Details Date Type Department Care Team (Late st Contact Info) Description 03/21/2018 Abstract [facility] Conversion Wild Bhakta MD [address] [place] [id number] Social History Tobacco Use Types Packs/Day Years Used Date Smoking Tobacco: Never Assessed Comments Unknown Sex and Gender Information Value Date Recorded Sex Assigned at Not on file Legal Sex Female 7:06 PM CDT Gender Identity Not on file Sexual Orientation Not on file documented as of this encounter Miscellaneous Notes * Letter - Wild Bhakta MD - 03/21/2018 12:00 AM CDT 21 March 2018 Ira Heredia [address] [place] [address] Dear Ira Heredia, Thank you for the trust you have placed in [facility] as your health care team. You are a valued patient at our office and we hope you are well. We are concerned about your health and noticed that you did not keep your last scheduled appointment on 03/21/2018. If your appointment has not been rescheduled, please call the office at to reschedule your appointment as soon as possible. As you are aware, we are dedicated to caring for the whole patient, not just treating an illness. When we schedule appointments, we set aside time and professional resources to meet the individual needs of our patients, including time for one-on-one consultation. When a patient does not come to an appointment or cancels the appointment without sufficient notice, our health care team is not able to take time needed to care for another patient. Cancelling within at least 24 hours of your appointment allows us to prepare our schedule for other patients who need timely care. Please be aware, per our organization's no-show policy, if at least 24 hours' notice is not given two times in one year, the practice will impose a $25 no- show fee. We understand there are occasions when a patient must miss an appointment due to unforeseen circumstances. In this event, please call our office and cancel your appointment as soon as you are able. This allows our staff to schedule another patient in need of care. We are committed to providing you the best care possible. We hope to hear from you soon. Sincerely, [facility] cc: Patient Medical Record RELINER documented in this encounter Plan of Treatment Not on file documented as of this encounter Visit Diagnoses Not on filedocumented in this encounter Care Teams Resin Remover Relationship Specialty Start Date End Date Wild Bhakta MD PCP - General INTERNAL MEDICINE 06/22/18 documented as of this encounter
--- OUTSIDE RECORDS SUMMARY | 2025-05-05 08:59 | XMS_ITS | Encounter Summary ---
Author Organization [facility] Address 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) Social History Tobacco Use Types Packs/Day Years Used Date Smoking Tobacco: Never Assessed Comments Unknown Sex and Gender Information Value Date Recorded Sex Assigned at Not on file 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 Gender Identity Not on file Sexual Orientation Not on file documented as of this encounter Plan of Treatment Not on file documented as of this encounter Procedures Procedure Name Priority Date/Time Associated Diagnosis Comments SPINAL FLUID CELL COUNT W/REFLEXIVE DIFF Routine 11/10/2006 1:57 PM CDT TOTAL PROTEIN, CSF Routine 11/10/2006 1: 57 PM CDT GLUCOSE, CSF Routine 11/10/2006 1:57 PM CDT documented in this encounter Results * TOTAL PROTEIN, CSF (11/10/2006 1:57 PM CDT) PROTEIN, CSF 34 15 - 45 mg/dL INTERFACE SYSTEM 11/10/2006 1:57 PM CDT José Lester MD BODY FLUIDS AND STOOLS Edited Performing Organization Address [facility] Phone Number INTERFACE SYSTEM Refer to clinic/hospital department * GLUCOSE, CSF (11/10/2006 1:57 PM CDT) GLUCOSE, CSF 57 40 - 70 mg/dL INTERFACE SYSTEM 11/10/2006 1:57 PM CDT José Lester MD BODY FLUIDS AND STOOLS Edited Performing Organization Address [facility] de Phone Number INTERFACE SYSTEM Refer to clinic/hospital department * SPINAL FLUID CELL COUNT W/REFLEXIVE DIFF (11/10/2006 1:57 PM CDT) COLOR, CSF Colorless Colorless INTERFACE SYSTEM APPEARANCE, CSF Clear Clear INTERFACE SYSTEM TUBE #, CSF 1 INTERFAC E SYSTEM VOLUME, CSF 1.5 mL INTERFAC E SYSTEM WBC, CSF 0 0 - 10 /uL INTERFACE SYSTEM RBC, CSF 0 <=0 /uL INTERFACE SYSTEM 11/10/2006 1:57 PM CDT José Lester MD BODY FLUIDS AND STOOLS Edited Performing Organization Address [facility] Phone Number INTERFACE SYSTEM Refer to clinic/hospital department documented in this encounter Visit Diagnoses Diagnosis Displacement of lumbar intervertebral disc without myelopathy- Primary documented in this encounter Care Teams Mechanical Engineering Lecturer Relationship Specialty Start Date End Date Chinmay Hilton MD [address] [place] [address] PCP - General 11/10/06 documented as of this encounter
--- OUTSIDE RECORDS SUMMARY | 2025-05-05 09:00 | XMS_ITS | Patient Health Record ---
Author Organization [facility] Address [address] [place] [address] Care Team Providers Care Finisher Cold Rolling Name Role Phone Mamta Nguyen Unavailable [phone] Reason For Referral No Information Medications Medication SIG (Take, Route, Frequency, Duration) Notes Start Date End Date Status Clindamycin HCl 300 MG Capsule Oral Active guaiFENesin-Codeine 100-10 MG/5ML Solution Oral 12/10/2021 Active metroNIDAZOLE 500 MG Tablet Oral 12/10/2021 Active Metoprolol Succinate ER 25 M G Tablet Extended Release 24 Hour Oral 12/10/2021 Active Estradiol 2 MG Tablet Oral 12/10/2021 Active Sertraline HCl 100 MG Tablet Oral 12/10/2021 Active hydroCHLOROthiazide 25 MG Tablet Oral 12/10/2021 Active oxyBUTYnin Chloride ER 5 MG Tablet Extended Release 24 Hour Oral 12/10/2021 Active Penicillin V Potassium 500 M G Tablet Oral 12/10/2021 Active Acetaminophen-Codeine #3 300 -30 MG Tablet Oral 12/10/2021 Active metFORMIN HCl 500 MG Tablet Oral 12/10/2021 Active buPROPion HCl ER (XL) 150 MG Tablet Extended Release 24 Hour Oral 12/10/2021 Active Losartan Potassium 100 MG Tablet Oral 12/10/2021 Active Simvastatin 10 MG Tablet Oral 12/10/2021 Active Immunizations Vaccine Route Administration Date Status Comme nts Influenza virus vaccine, quadrivalent (IIV4), split virus, 0.25 mL dosage Unknown 05/14/2021 Administered Norris Covid-19 Vaccine Unknown 11/09/2020 Administere d Norris Covid-19 Vaccine Unknown 07/01/2021 Administere d Social History Social History Additional Details Category Social Info Options Details Migrated Social History Migrated Social History Alcohol Intake: Moderate 12/10/2021,Tobacco Years: Never smoker 06/16/2021 Plan Of Treatment No Information Insurance Providers Payer Name Payer Address Payer Phone Subscriber Number Group Number Insured Name Patient Relationship to Insured Coverage Start Date Coverage End Date [employer]cbs-[place] do not use [address] [address] [place] [address] [id number] RAJWINDER CORDERO Spouse - patient is the spouse of the insured Medical (General) History Surgical History Surgery Date(Month/Year) Hysterectomy (875084740) Cholecystectomy (76233161) Endometr ablate thermal (30530) Oophorectomy ([id number])
--- OUTSIDE RECORDS SUMMARY | 2025-05-05 09:00 | XMS_ITS | Clinical Summary ---
Author Organization [facility] Address [address] [place] [address] Care Team Providers Care Weatherization Coordinator Name Role Phone Chinmay Hilton MD Primary Care Provider [phone] Family History Medical History Relation Name Comments Breast Cancer Neg Hx Ovarian Cancer Neg Hx Social History Tobacco Use Types Packs/Day Years Used Date Smoking Tobacco: Never Assessed Comments Unknown Sex and Gender Information Value Date Recorded Sex Assigned at Not on file Legal Sex Female 2:[address] ENG[address]ER Gender Identity Not on file Sexual Orientation Not on file Plan of Treatment Health Maintenance Due Date Last Done Comments DTAP/TDAP/TD VACCINES (1 - Tdap) 1981 HPV/Cotest (21-29) 1983 CERVICAL CANCER SCREENING 1992 HPV/Cotest (30-65) 1992 PAP SMEAR 1992 COLORECTAL SCREENING 2007 Colorectal Cancer Screening 2007 FIT-DNA Q 3 years 2007 FIT/FOBT Q 1 year 2007 Flex Sig/CT Colonography Q 5 years 2007 BREAST CANCER SCREENING 04/05/2012 04/05/20 11, 02/26/2010, 12/02/2008 ZOSTER VACCINE (1 of 2) 2012 INFLUENZA VACCINE (#1) 2025 RSV VACCINE (60+ or ) (1 - 1-dose 75+ series) 2037 Procedures Procedure Name Priority Date/Time Associated Diagnosis Comments MAMMO DIAGNOSTIC BILATERAL W OR WO CAD Routine 04/05/2011 12:22 PM CDT Breast pain from Last 3 Months or Most Recently Relevant to Health Maintenance Results * MAMMO DIGITAL DIAG BILAT (04/05/2011 12:22 PM CDT) Anatomical Region Laterality Modality Breast Bilateral Mammography 04/05/2011 12:2 2 PM CDT Impressions 04/12/2011 9:57 PM CDT IMPRESSION: No evidence of malignancy. RECOMMENDATION: Bilateral annual screening mammogram. OVERALL ASSESSMENT: BI-RADS Category: 1, negative. Narrative 04/12/2011 9:57 PM CDT BILATERAL FULL FIELD DIGITAL DIAGNOSTIC MAMMOGRAMS WITH CAD LEFT BREAST ULTRASOUND DATE: 04/05/2011 HISTORY: Breast pain. Focal palpable area in the left axillary region. MAMMOGRAPHIC FINDINGS: Comparison studies are dated 02/26/2010 and 12/02/2008. There are scattered fibroglandular tissues bilaterally. No significant mass, malignant calcification or architectural distortion is seen. The images were reviewed using the CAD system. LEFT BREAST ULTRASOUND FINDINGS: A survey of the left breast was performed, with particular attention in the left axillary region. No solid or cystic mass is seen. No abnormal acoustic shadowing is visualized. Procedure Note Tomasa Rodriguez MD - 04/13/2011 BILATERAL FULL FIELD DIGITAL DIAGNOSTIC MAMMOGRAMS WITH CAD LEFT BREAST ULTRASOUND DATE: 04/05/2011 HISTORY: Breast pain. Focal palpable area in the left axillary region. MAMMOGRAPHIC FINDINGS: Comparison studies are dated 02/26/2010 and 12/02/2008. There are scattered fibroglandular tissues bilaterally. No significant mass, malignant calcification or architectural distortion is seen. The images were reviewed using the CAD system. LEFT BREAST ULTRASOUND FINDINGS: A survey of the left breast was performed, with particular attention in the left axillary region. No solid or cystic mass is seen. No abnormal acoustic shadowing is visualized. IMPRESSION IMPRESSION: No evidence of malignancy. RECOMMENDATION: Bilateral annual screening mammogram. OVERALL ASSESSMENT: BI-RADS Category: 1, negative. us Chinmay Hilton MD MAMMO ORDERABLES Edited from Last 3 Months or Most Recently Relevant to Health Maintenance Insurance * Guarantor: Ira Heredia Account Type Relation to Patient Date of Phone Billing Address Personal/Family Self 1960 [phone] (Work) [address] [place] [address] [employer] P[employer] [id number] Care Teams Weatherization Coordinator Relationship Specialty Start Date End Date Chinmay Hilton MD [address] [place] [address] PCP - General 11/10/06
== END 2025-05-05 08:25 | disposition home or self-care (01) ==
LOC: ANHGOSHLAB 08:25
PROVIDERS: PCP Family Medicine; Visit Provider Nurse Practitioner Family
DX: E55.9 Vitamin D deficiency, unspecified (principal); I10 Essential (primary) hypertension
CPT/HCPCS: 36415